=== PATIENT | male | born 1955 | race Caucasian/White ===

== ENCOUNTER 2018-03-02 10:13 | Day surgery (SDC) | payer BC ==
[~2018-03-02 10:13] MED LIST: Acetaminophen TAB* 325 MG PO PRN; Buffered Lidocaine 0.9% SYRIN* 5 ML/SYR SYRINGE INTRADERM ONE; Cyclopentolate 1% OPTH.SOL* 2 ML BTL ONE; Ketorolac 0.5% OPHTH (NF) 0.5 % 5 ML BTL ONE; Lidocaine 1%* 5 ML VIAL ONE; Lidocaine 2% EPI 1:200000 MPF*10-20 ML VIAL ONE; Neomycin/Polymy/Dex OPTH.SUSP* MAXITROL 0.1% 5 ML ONE; Povidone Iodine 5% OPTH* 30 ML BTL ONE; Proparacaine 0.5% OPHTH.SOL* 15 ML BTL ONE; acetaZOLAMIDE TAB* 250 MG ONE
[2018-03-02] MEDS ORDERED: Midazolam* 1 MG/ML 2 ML VIAL (2 MG) ONE (12:49)
[2018-03-02 13:32] VITALS: BP 124/68
--- NOTE | 2018-03-02 15:28 | OP ---
DATE OF OPERATION: 11/30/2018. DATE OF : 1955. SURGEON: Curt Ross M.D. PREOPERATIVE DIAGNOSIS: Cataract right eye. POSTOPERATIVE DIAGNOSIS: Cataract right eye. OPERATIVE PROCEDURE: Extracapsular cataract extraction with intraocular lens implant right eye. PROCEDURE: The patient was brought to the operating room after being given 1/2% Alcaine with epineph rine drops in the preoperative area. The eye was prepped and draped in the usual sterile fashion. S terile drape and eyelid speculum were placed. Again, topical 1/2% Alcaine with epinephrine was given . A paracentesis incision was made at the 9 o'clock position with the No.75 blade. Clear cornea inc ision 2.2 x 2.2-mm was created at the 12 o'clock position starting at the anterior limbus using the 2 .2-mm keratome. The anterior chamber was irrigated with 0.4 mL of 1% non-preservative intracameral l idocaine and filled with DisCoVisc. A capsulorrhexis was completed using the cystotome and the Utrat a forceps. Hydrodissection was performed with balanced salt solution. The lens nucleus was removed w ith the Phacoemulsification handpiece without incident. Cortex was removed with the irrigation-aspir ation handpiece. The capsular bag was re-inflated using DisCoVisc and an [id number] 19 implant was inser jennifer with the shooter. The irrigation-aspiration handpiece was used to remove all residual DisCoVisc. The eye was refilled with balanced salt solution and the wound checked and found to be watertight. Topical Maxitrol drops were given. [id number]/[facility] #: [id number]
== END 2018-03-02 13:35 | disposition home or self-care (01) ==
LOC: OREAST 10:13
PROVIDERS: ATTEND Specialist
DX: H25.11 Age-related nuclear cataract, right eye (principal); H16.223 Keratoconjunctivitis sicca, not specified as Sjogren's, bilateral; I10 Essential (primary) hypertension; E78.00 Pure hypercholesterolemia, unspecified; Z85.828 Personal history of other malignant neoplasm of skin; F17.200 Nicotine dependence, unspecified, uncomplicated; M35.00 Sjogren syndrome, unspecified
CPT/HCPCS: A9270-GY; J2250; V2632

== ENCOUNTER 2018-03-09 09:30 | Day surgery (SDC) | payer BC ==
[~2018-03-09 09:30] MED LIST changes: -Acetaminophen TAB* 325 MG PO PRN; -Buffered Lidocaine 0.9% SYRIN* 5 ML/SYR SYRINGE INTRADERM ONE; +Buffered Lidocaine 1% SYRIN* 1 ML/SYRINGE INTRADERM ONE; -Cyclopentolate 1% OPTH.SOL* 2 ML BTL ONE; -Ketorolac 0.5% OPHTH (NF) 0.5 % 5 ML BTL ONE; -Lidocaine 1%* 5 ML VIAL ONE; -Lidocaine 2% EPI 1:200000 MPF*10-20 ML VIAL ONE; -Neomycin/Polymy/Dex OPTH.SUSP* MAXITROL 0.1% 5 ML ONE; -Povidone Iodine 5% OPTH* 30 ML BTL ONE; -Proparacaine 0.5% OPHTH.SOL* 15 ML BTL ONE; -acetaZOLAMIDE TAB* 250 MG ONE
[2018-03-09] MEDS ORDERED: Phenylephrine 2.5% OPTH.SOL* 2 ML BTL ONE (10:42)
[2018-03-09] MEDS ORDERED: Cyclopentolate 1% OPTH.SOL* 2 ML BTL ONE (10:42)
[2018-03-09] MEDS ORDERED: acetaZOLAMIDE TAB* 250 MG ONE (10:42)
[2018-03-09] MEDS ORDERED: Lidocaine 1%* 5 ML VIAL ONE (10:42)
[2018-03-09] MEDS ORDERED: Neomycin/Polymy/Dex OPTH.SUSP* MAXITROL 0.1% 5 ML ONE (10:42)
[2018-03-09] MEDS ORDERED: Ketorolac 0.5% OPHTH (NF) 0.5 % 5 ML BTL ONE (10:42)
[2018-03-09] MEDS ORDERED: Povidone Iodine 5% OPTH* 30 ML BTL ONE (10:42)
[2018-03-09] MEDS ORDERED: Lidocaine 2% EPI 1:200000 MPF*10-20 ML VIAL ONE (10:42)
[2018-03-09] MEDS ORDERED: Proparacaine 0.5% OPHTH.SOL* 15 ML BTL ONE (10:43)
[2018-03-09] MEDS ORDERED: Midazolam* 1 MG/ML 2 ML VIAL (2 MG) ONE (11:28)
[2018-03-09 12:05] VITALS: BP 112/69
--- NOTE | 2018-03-09 14:23 | OP ---
DATE OF OPERATION: 03/09/2018. DATE OF : 1955. SURGEON: Curt Ross M.D. PREOPERATIVE DIAGNOSIS: Cataract left eye. POSTOPERATIVE DIAGNOSIS: Cataract left eye. OPERATIVE PROCEDURE: Extracapsular cataract extraction with intraocular lens implant left eye. PROCEDURE: The patient was brought to the operating room after being given 1/2% Alcaine with epineph rine drops in the preoperative area. The eye was prepped and draped in the usual sterile fashion. S terile drape and eyelid speculum were placed. Again, topical 1/2% Alcaine with epinephrine was given . A paracentesis incision was made at the 3 o'clock position with the No.75 blade. Clear cornea inc ision 2.2 x 2.2-mm was created at the 6 o'clock position starting at the anterior limbus using the 2. 2-mm keratome. The anterior chamber was irrigated with 0.4 mL of 1% non-preservative intracameral li docaine and filled with DisCoVisc. A capsulorrhexis was completed using the cystotome and the Utrata forceps. Hydrodissection was performed with balanced salt solution. The lens nucleus was removed wi th the Phacoemulsification handpiece without incident. Cortex was removed with the irrigation-aspira tion handpiece. The capsular bag was re-inflated using DisCoVisc and an SN60WF 18.5 implant was inse rted with the shooter. The irrigation-aspiration handpiece was used to remove all residual DisCoVisc . The eye was refilled with balanced salt solution and the wound checked and found to be watertight. Topical Maxitrol drops were given. [id number]/[facility] #: [id number]
== END 2018-03-09 12:11 | disposition home or self-care (01) ==
LOC: OREAST 09:30
PROVIDERS: ATTEND Specialist
DX: H25.12 Age-related nuclear cataract, left eye (principal); H16.223 Keratoconjunctivitis sicca, not specified as Sjogren's, bilateral; Z72.0 Tobacco use; E78.2 Mixed hyperlipidemia; I10 Essential (primary) hypertension
CPT/HCPCS: A9270-GY; J2250; V2632

== ENCOUNTER 2018-09-24 18:48 | Emergency (ER) | payer BC ==
[2018-09-24] MEDS ORDERED: NS 0.9% 1000 ML** 1,000 ML IV ONE (19:00)
[2018-09-24 19:21] LABS: ABS Basophils 0.1 10^3/ul (0-0.2); ABS Eosinophils 0.1 10^3/ul (0-0.6); ABS Monocytes 0.7 10^3/ul (0-0.8); ABS Neutrophils 8.5 10^3/ul (1.5-7.7); Eosinophil % 1.3 %; Hematocrit 46 % (42-52); Hemoglobin 16.1 g/dL (14.0-18.0); Lymphocyte % 17.1 %; Mean Corpuscular HGB Conc 35 g/dL (31-36); Mean Corpuscular Hemoglobin 32 pg (27-31); Mean Corpuscular Volume 91 fL (80-94); Mean Platelet Volume 8.3 fL (7.4-10.4); Nucleated Red Blood Cells % 0.1; Platelet Count 233 10^3/uL (150-450); Red Blood Count 5.03 10^6 /uL (4.18-5.48); Red Cell Distribution Width 14 % (10-15); White Blood Count 11.5 10^3/uL (3.5-10.8)
--- NOTE | 2018-09-24 19:31 | ED ---
Syncope/Near Syncope - HPI Summary HPI Summary: This patient is a 63 year old male presenting to [facility] with a chief complaint of a syncopal episode one hour [employer]. He says he was working outside in the sun for the last 3 days. He came home after being out for 2-3 hours and when he came inside he was giving water to his dog when he began to experience lightheadedness and thought he would pass out. Patient was able to get into a chair and his helped him so he did not fall. Patient states that this episode lasted for about a minute, he had intermittent loss of consciousness and felt woozy. Patient also has bladder incontinence. denies any seizure -like activity but did have mild tremor during the episode. Patient does not have a history of seizures. Patient did not bite his tongue. The patient denies chest pain He states he was experiencing nausea. He has a Hx of HTN and HLD. 5 Hour Energy Drinks 1 btl PO QAM 02/23/18 [History Confirmed 03/09/18] Aspirin [Adult Aspirin] 81 mg PO QAM 02/23/18 [History Confirmed 03/09/18] Atorvastatin* [Lipitor*] 10 mg PO BEDTIME 02/23/18 [History Confirmed 03/09/18] Lisinopril 20 mg PO QAM 02/23/18 [History Confirmed 03/09/18] hydroCHLOROthiazide [Hydrochlorothiazide] 12.5 mg PO QAM 02/23/18 [History Confirmed 03/09/18] buPROPion HCl [Bupropion HCl Xl] 150 mg PO DAILY 09/24/18 [History Confirmed 05/10] - History Of Current Complaint Chief Complaint: EDSyncope Time Seen by Provider: 09/24/18 19:00 Hx Obtained From: Patient Onset/Duration: Lasting Hours Timing: Constant Context: Witnessed Activity At Onset: At Rest - Allergies/Home Medications Allergies/Adverse Reactions: Allergies Allergy/AdvReac Type Severity Reaction Status Date / Time No Known Allergies Allergy Verified 03/09/18 09:49 Home Medications: Home Medications buPROPion HCl [Bupropion HCl Xl] 150 mg PO DAILY 09/24/18 [History Confirmed 05/10] PMH/Surg Hx/FS Hx/Imm Hx Cardiovascular History: Reports: Hx Hypertension - on lisinopril Denies: Other Cardiovascular Problems/Disorders Respiratory History: Reports: Hx Asthma - as a child, Hx Sleep Apnea - history of, none after nasal septum surgery 2005, Other Respiratory Problems/Disorders - history of deviated septum-septoplasty 2005 GI History: Reports: Other GI Disorders - Elevated liver values from alcohol-30 years ago-drinks rarely now History: Denies: Other Problems/Disorders Musculoskeletal History: Reports: Hx Arthritis - Generalized arthritis, Hx Bursitis - Right shoulder-12/2017-treated and improved Denies: Other Musculoskeletal History Sensory History: Reports: Hx Cataracts - Bilateral cataracts, Hx Contacts or Glasses - Glasses Denies: Hx Hearing Aid Opthamlomology History: Reports: Hx Cataracts - Bilateral cataracts, Hx Contacts or Glasses - Glasses Neurological History: Denies: Other Neuro Impairments/Disorders - Surgical History Surgery Procedure, Year, and Place: [place] [facility] [place] Basal cell skin lesions with local anesthesia Hx Anesthesia Reactions: Yes - Had a hard time waking up after nasal surgery, brought in to wake up - Immunization History Immunizations Up to Date: Yes Infectious Disease History: No Infectious Disease History: Denies: Traveled Outside the [place] in Last 30 Days - Family History Known Family History: Positive: Non-Contributory - Social History Alcohol Use: Occasionally Alcohol Amount: glass of wine Substance Use Type: Reports: None Smoking Status (MU): Heavy Every Day Tobacco Smoker Type: Cigarettes, Cigars Amount Used/How Often: 8-10 cigars a day- cigarettes if no cigars- smoking for 40 years Have You Smoked in the Last Year: Yes Review of Systems Positive: incontinence Positive: Syncope All Other Systems Reviewed And Are Negative: Yes Physical Exam - Summary Physical Exam Summary: Constitutional: Well-developed, Well-nourished, Alert. (-) Distressed Skin: Warm, Dry HENT: Normocephalic; Atraumatic Eyes: Conjunctiva normal Neck: Musculoskeletal ROM normal neck. (-) JVD, (-) Nuchal rigidity Cardio: Rhythm regular, rate normal, Heart sounds normal; Intact distal pulses; Radial pulses are 2+ and symmetric. (-) Murmur Pulmonary/Chest wall: Effort normal. (-) Respiratory distress, (-) Wheezes, (-) Rales Abd: Soft. (-) Tenderness, (-) Distension, (-) Guarding, (-) Rebound Musculoskeletal: (-) Edema Lymph: (-) Cervical adenopathy Neuro: Alert, PERRL, Oriented x3, Strength normal, Cranial nerves II-XII are grossly intact. SILT, Strength 5/5 BUE and BLE, (-) Dysmetria, (-) Nystagmus, ambulates w steady gait. Psych: Mood and affect Normal Triage Information Reviewed: Yes Vital Signs On Initial Exam: Initial Vitals Temp Pulse Resp BP Pulse Ox 99.7 F 82 18 150/78 97 09/24/18 18:55 09/24/18 18:55 09/24/18 18:55 09/24/18 18:55 09/24/18 18:55 Vital Signs Reviewed: Yes Diagnostics - Vital Signs Vital Signs Temp Pulse Resp BP Pulse Ox 09/24/18 19:01 84 29 96 09/24/18 18:57 84 25 97 09/24/18 18:56 82 15 150/78 97 09/24/18 18:55 99.7 F 82 18 150/78 97 - Laboratory Lab Results: Lab Results 09/24/18 Range/Units 19:10 WBC 11.5 H (3.5-10.8) 10^3/uL RBC 5.03 (4.18-5.48) 10^6 /uL Hgb 16.1 (14.0-18.0) g/dL Hct 46 (42-52) % MCV 91 (80-94) fL MCH 32 H (27-31) pg MCHC 35 (31-36) g/dL RDW 14 (10-15) % Plt Count 233 (150-450) 10^3/uL MPV 8.3 (7.4-10.4) fL Neut % (Auto) 74.5 % Lymph % (Auto) 17.1 % [place] % (Auto) 6.3 % Eos % (Auto) 1.3 % Baso % (Auto) 0.8 % Absolute Neuts (auto) 8.5 H (1.5-7.7) 10^3/ul Absolute Lymphs (auto) 2.0 (1.0-4.8) 10^3/ul Absolute Monos (auto) 0.7 (0-0.8) 10^3/ul Absolute Eos (auto) 0.1 (0-0.6) 10^3/ul Absolute Basos (auto) 0.1 (0-0.2) 10^3/ul Absolute Nucleated RBC 0.0 10^3/ul Nucleated RBC % 0.1 Result Diagrams: 09/24/18 19:10 09/24/18 21:37 Lab Statement: Any lab studies that have been ordered have been reviewed, and results considered in the medical decision making process. - Radiology CXR Radiology Interpretation Completed By: ED Physician Summary of Radiographic Findings: No acute abnormalities. Mediastinum does not appear wide. Pending official radiologist report. - CT Brain CT Interpretation Completed By: Radiologist Summary of CT Findings: No acute intracranial abnormality. ED Provider has reviewed this report. Re-Evaluation - Re-Evaluation First Eval Change: Improved - Patient states he feels well, was given IV fluids and magnesium. Ambulated in the department and no distress. Patient's potassium is hemolyzed 2. No evidence of hyperkalemia on his EKG. Patient agreeable to sending potassium, but does not want to stay, we will send off all the lab before he leaves. He is aware that we cannot tell what his potassium is and it could be high or low. He will follow up w his PCP Second Eval Comment: Patient's potassium hemolyzed x3 Course/Dx Course Of Treatment: 62-year-old male history of hypertension presents after a syncopal episode. Syncope. DDx: Possibly 2/2 dehydration, will provide IVF. Also vasovagal. Seizure: Patient did have mild tremors and urinary incontinence , this is likely more secondary to a syncopal event however we will check a head CT. No history of seizures. Hypoxia and hypoglycemia less likely in this patient with normal sats and BG. Cardiac issue: electrical (dysarrhythmias, brugada, WPW, long QT). Less likely given no evidence of drop attack, no palpitations, no EKG findings to predispose to arrhythmias. No CP, no STEMI on EKG; NSTEMI unlikely to cause brief cardiogenic shock in absence of other significant findings, so likely does not need full cardiac rule out with repeat troponins and stress. Trop negative x1 here. Mechanical: outflow obstruction like HOCM or aortic stenosis, tamponade-less likely as no murmur, non-exertional , no hypertrophy on EKG. Vessels: PE, dissection, AAA. Clinical picture inconsistent, no abd pain, no pulsatile mass, symmetric pulses, no risk factors of PE. Neuro: No DO, no personal or family h/o cerebral aneurysm, nml neuro exam, so this is unlikely ICH or sentinel bleed. Also: autonomic insufficiency - Diagnoses Provider Diagnoses: Syncope Discharge - Sign-Out/Discharge Documenting (check all that apply): Patient Departure Patient Received Moderate/Deep Sedation with Procedure: No - Discharge Plan Condition: Stable Disposition: HOME Patient Education Materials: Syncope (ED) Referrals: Dayanna Kaplan MD [Primary Care Provider] - Additional Instructions: You were seen in the emergency department for passing out. Your EKG and chest x -ray were unremarkable. Your labs showed a low magnesium which we gave you some of. Your potassium is hemolyzed which means we were unable to test the value, we resent and will call you with the result if abnormal. Please follow- up with your doctor as soon as possible. Although your presentation is more consistent with passing out and not a seizure , given that you had some shaking, do not drive, some alone or take a bath unsupervised until you're cleared by her doctor If any studies were not completed at the time of discharge you will be called with the relevant results. Please follow up with your primary care doctor in next 2-3 days and return to emergency department for worsening or concerning symptoms. - Billing Disposition and Condition Condition: STABLE Disposition: Home - Attestation Statements Document Initiated by Eder: Yes Documenting Scribe: Fernando Hammond Provider For Whom Eder is Documenting (Include Credential): Caron Fermin MD Scribe Attestation: Fernando German scribed for Caron Fermin MD on 09/24/18 at 2202. Scribe Documentation Reviewed: Yes Provider Attestation: The documentation as recorded by the Fernando diaz accurately reflects the service I personally performed and the decisions made by me, Caron Fermin MD Status of Scribkristopher Document: Viewed
[2018-09-24 19:32] LABS: ALT 22 U/L (7-52); Albumin 4.1 g/dL (3.2-5.2); Albumin/Globulin Ratio 1.6 (1-3); Alkaline Phosphatase 47 U/L (34-104); BUN/Creatinine Ratio 17.9 (8-20); Blood Urea Nitrogen 20 mg/dL (6-24); CO2 Carbon Dioxide 23 mmol/L (22-32); Calcium 9.1 mg/dL (8.6-10.3); Chloride 103 mmol/L (101-111); EGFR African American 80.1 (>60); EGFR Non-African American 66.2 (>60); Globulin 2.6 g/dL (2-4); Glucose 156 mg/dL (70-100); Magnesium 1.8 mg/dL (1.9-2.7); Sodium 133 mmol/L (135-145); Total Protein 6.7 g/dL (6.4-8.9)
[2018-09-24 19:57] LABS: Anion Gap 7 mmol/L (2-11)
[2018-09-24] MEDS ORDERED: Magnesium Oxide TAB* 400 MG PO ONE (20:22)
[2018-09-24 21:06] LABS: Urine Appearance Clear; Urine Bilirubin Negative (Negative); Urine Blood Negative (Negative); Urine Color Yellow; Urine Glucose Negative (Negative); Urine Ketones Negative (Negative); Urine Nitrite Negative (Negative); Urine Protein Negative (Negative); Urine Specific Gravity 1.011 (1.010-1.030); Urine Urobilinogen Negative (Negative)
[2018-09-24 21:06] LABS: Anion Gap 9 mmol/L (2-11); BUN/Creatinine Ratio 17.6 (8-20); Blood Urea Nitrogen 18 mg/dL (6-24); CO2 Carbon Dioxide 21 mmol/L (22-32); Calcium 8.7 mg/dL (8.6-10.3); Chloride 104 mmol/L (101-111); EGFR African American 89.3 (>60); EGFR Non-African American 73.8 (>60); Glucose 122 mg/dL (70-100); Sodium 134 mmol/L (135-145)
[2018-09-24 21:58] LABS: ALT 22 U/L (7-52); Albumin/Globulin Ratio 1.4 (1-3); Alkaline Phosphatase 49 U/L (34-104); BUN/Creatinine Ratio 18.5 (8-20); Blood Urea Nitrogen 17 mg/dL (6-24); CO2 Carbon Dioxide 21 mmol/L (22-32); Calcium 8.8 mg/dL (8.6-10.3); Chloride 106 mmol/L (101-111); EGFR African American 100.5 (>60); EGFR Non-African American 83.1 (>60); Globulin 2.8 g/dL (2-4); Glucose 127 mg/dL (70-100); Sodium 135 mmol/L (135-145); Total Protein 6.8 g/dL (6.4-8.9)
[2018-09-24 22:04] LABS: Anion Gap 8 mmol/L (2-11)
[2018-09-24 22:06] VITALS: BP 148/80
== END 2018-09-24 22:05 | disposition home or self-care (01) ==
LOC: ED 18:48
DX: R55 Syncope and collapse (principal); I10 Essential (primary) hypertension; E78.5 Hyperlipidemia, unspecified; F17.210 Nicotine dependence, cigarettes, uncomplicated; Z79.82 Long term (current) use of aspirin; Z79.899 Other long term (current) drug therapy
CPT/HCPCS: 36415; 70450; 71045; 80048; 80053; 81003; 83735; 84484; 85025; 93005; 96360; 96361; 99283